=== PATIENT | female | born 1985 | race Caucasian/White ===

== ENCOUNTER 2017-09-21 21:30 | Inpatient (IN) | payer OTHER ==
[2017-09-21] MEDS: ELECTROLYTE-148 SOLN 1,000 ML IV SCH (22:00)
[2017-09-21] MEDS: CITRIC ACID/SODIUM CITRATE 30 ML UNIT-DOSE CUP PO ONE (22:11)
[2017-09-21] MEDS ORDERED: morphine SULFATE/Preservative Free 0.5 MG/ML (1cc Syringe) EP ONE (22:38)
[2017-09-21] MEDS ORDERED: ONDANSETRON 4 MG/2 ML VIAL IVPUSH PRN (22:38)
[2017-09-21] MEDS ORDERED: IBUPROFEN 800 MG/8 ML IJ IVPB PRN (22:39)
[2017-09-21 22:46] LABS: BASO % 0.3 % (0-2.0); EOS % 0.6 % (0-4.5); HEMOGLOBIN 11.6 GM/dL (10.7-15.3); LYMPH % 11.4 % (8-40); MCH 28.8 pg (25.7-33.7); MEAN CELL VOLUME 87.3 fl (80-96); MEAN PLT VOLUME 10.7 fl (7.5-11.1); MONO % 4.7 % (3.8-10.2); PLATELET COUNT 272 K/MM3 (134-434); RBC 4.01 M/mm3 (3.60-5.2); RDW 14.3 % (11.6-15.6); WHITE BLOOD COUNT 12.3 K/mm3 (4.0-10.0)
[2017-09-21] MEDS ORDERED: ceFAZolin SODIUM 1 GM VIAL ONE (22:47)
[2017-09-21 23:11] LABS: INR 0.95 (0.82-1.09); PROTHROMBIN TIME (PATIENT) 10.7 SEC (9.98-11.88)
[2017-09-21] MEDS ORDERED: OXYTOCIN 10 UNITS/ML VIAL ONE ×2 (23:11→23:17)
[2017-09-21 23:13] LABS: ACTIVATED PTT 26.8 SECONDS (26.9-34.4)
[2017-09-21 23:26] LABS: BLOOD UREA NITROGEN 10 mg/dL (7-18); CREATININE 0.9 mg/dL (0.55-1.02); GLUCOSE,RANDOM 85 mg/dL (74-106); SODIUM 139 mmol/L (136-145)
[2017-09-21 23:27] LABS: ANION GAP 13 (8-16); CALCIUM 8.8 mg/dL (8.5-10.1); CHLORIDE 103 mmol/L (98-107); CO2 23 mmol/L (21-32)
--- NOTE | 2017-09-21 23:57 | HP ---
Past Medical History - Admission Chief Complaint: Labor pain History of Present Illness: 32 yo @ 40 weeks gestation, admitted for labor pain. She had 2 prior in [facility]. record available from [facility]. History Source: Patient Limitations to Obtaining History: No Limitations - Past Medical History ...: 3 ...Para: 2 ...EDC by Dyllan: 09/18/17 - Past Surgical History Past Surgical History: Yes: Hx Myomectomy: No Hx Transabdominal Cerclage: No - Smoking History Have you smoked in the past 12 months: No - Alcohol/Substance Use Hx Alcohol Use: No - Social History History of Recent Travel: Yes Home Medications - Allergies Allergies/Adverse Reactions: Allergies Allergy/AdvReac Type Severity Reaction Status Date / Time No Known Allergies Allergy Verified 09/21/17 23:17 - Home Medications Home Medications: Ambulatory Orders Vitamins (Sjr) - 1 tab PO DAILY 09/21/17 Family Disease History - Family Disease History Family History: Unremarkable Review of Systems - Review of Systems Constitutional: reports: No Symptoms Eyes: reports: No Symptoms HENT: reports: No Symptoms Neck: reports: No Symptoms Cardiovascular: reports: No Symptoms Respiratory: reports: No Symptoms Gastrointestinal: reports: No Symptoms Genitourinary: reports: Pain Breasts: reports: No Symptoms Reported Musculoskeletal: reports: No Symptoms Integumentary: reports: No Symptoms Neurological: reports: No Symptoms Endocrine: reports: No Symptoms Hematology/Lymphatic: reports: No Symptoms Psychiatric: reports: No Symptoms Pain Intensity: 7 Physical Exam - Maternity Constitutional: Yes: Well Nourished Eyes: Yes: Conjunctiva Clear HENT: Yes: Atraumatic Neck: Yes: Supple Cardiovascular: Yes: Regular Rate and Rhythm Lungs: Clear to auscultation - Abdominal Exam/OB Number of Fetuses: Single Presentation: Vertex - Vaginal Exam/OB Vaginal Bleediing: No Dilatation (cm): 3 Amniotic Membrane Status: Intact Presentation: Vertex/Position - Physical Exam Psychiatric: Yes: Alert - Labs Lab Results: CBC, BMP 09/21/17 22:15 09/21/17 22:15 Problem List - Problems (1) Pain during labor Code(s): O99.89 - OTH DISEASES AND CONDITIONS COMPL PREG/CHLDBRTH; R52 - PAIN, UNSPECIFIED (2) Previous section complicating , antepartum condition or complication Code(s): O34.219 - MATERNAL CARE FOR UNSP TYPE SCAR FROM PREVIOUS DEL Assessment/Plan Previous in labor Pre op for repeat Consent signed Anesthesia to see patient
--- NOTE | 2017-09-22 00:01 | OP ---
Operative Note - Note: Operative Date: 09/21/17 Pre-Operative Diagnosis: Previous in labor Operation: Repeat Low Transverse Findings: Light meconium Baby boy in LOT position Surgeon: Christi Rhoades Project Geophysicist: Sourav Campbell Anesthesia: Spinal Specimens Removed: Placenta Estimated Blood Loss (mls): 500
[2017-09-22 01:28] VITALS: BMI 41.0
[2017-09-22] MEDS ORDERED: OXYTOCIN 20 UNITS in 0.9% NS 20 UNIT/1,000 ML INFUS.BAG IV ONE (01:36)
[2017-09-22] MEDS ORDERED: METHYLERGONOVINE MALEATE 0.2 MG/1 ML AMP IM PRN (02:00)
[2017-09-22] MEDS ORDERED: IBUPROFEN 800 MG/8 ML IJ IVPB PRN (02:00)
[2017-09-22] MEDS ORDERED: oxyCODONE HCL 5 MG TABLET PO PRN (02:00)
[2017-09-22] MEDS ORDERED: OXYTOCIN 20 UNITS in 0.9% NS 20 UNIT/1,000 ML INFUS.BAG IV SCH (02:00)
[2017-09-22] MEDS ORDERED: DIPHTH,PERTUSS(ACELL),TET 0.5 ML DISP.SYRIN IM ONE (02:31)
[2017-09-22] MEDS ORDERED: TUBERCULIN PPD 5 TU/0.1ML SYRINGE (IN PATIENT USE ONLY) ID ONE (10:00)
[2017-09-22] MEDS: FERROUS SO4 325 MG TABLET (FP) PO SCH ×2 (10:00→22:00)
[2017-09-22] MEDS: PRENATAL VITAMINS W/ FOLIC ACID TABLET (FP) PO SCH (10:00)
--- NOTE | 2017-09-22 10:35 | PN ---
Progress Note, Physician Chief Complaint: Pt. not yet ambulating and rogers still in place, excellent pain control. No anesthesia complaints. - Current Medication List Current Medications: Active Medications Bisacodyl (Dulcolax Suppository -) 10 mg RC PRN PRN PRN Reason: CONSTIPATION Diphenhydramine HCl (Benadryl Injection -) 25 mg IVPUSH Q4H PRN PRN Reason: Pruritis Diphtheria/Tetanus/Acell Pertussis (Boostrix -) 0.5 ml IM .ONCE ONE Stop: 09/23/17 10:01 Ferrous Sulfate (Feosol -) 325 mg PO BID [facility] Parenteral Electrolytes (Plasma-Lyte 148 -) 1,000 mls @ 125 mls/hr IV ASDIR [facility] Last Admin: 09/21/17 22:00 Dose: 125 mls/hr Oxytocin/Sodium Chloride (Normal Saline+20 Units Oxytocin -) 20 unit in 1,000 mls @ 125 mls/hr IV ASDIR [facility] Last Admin: 09/21/17 23:13 Dose: 125 mls/hr Ibuprofen (Motrin -) 600 mg PO Q4H PRN PRN Reason: PAIN Ibuprofen (Caldolor Injection -) 800 mg IVPB Q8H PRN PRN Reason: PAIN OR FEVER Influenza Virus Vaccine Quadrival (Flulaval Quad [id number]) 60 mcg IM .ONCE ONE Stop: 09/23/17 10:01 Methylergonovine Maleate (Methergine Injection -) 0.2 mg IM Q4H PRN PRN Reason: Excessive Bleeding (L&D) Last Admin: 09/22/17 05:04 Dose: 0.2 mg Ondansetron HCl (Zofran Injection) 4 mg IVPUSH Q4H PRN PRN Reason: NAUSEA Oxycodone HCl (Roxicodone -) 5 mg PO Q4H PRN PRN Reason: PAIN LEVEL 1-5 Multivit/Folic Acid/Iron ( Vitamins (Sjr) -) 1 tab PO DAILY [facility] Simethicone (Mylicon -) 80 mg PO Q4H PRN PRN Reason: GAS - Objective Vital Signs: Vital Signs Temperature 98.4 F 09/22/17 09:33 Pulse Rate 90 09/22/17 09:33 Respiratory Rate 20 09/22/17 09:43 Blood Pressure 109/61 09/22/17 09:33 O2 Sat by Pulse Oximetry (%) 100 09/22/17 03:59 Constitutional: Yes: Well Nourished, No Distress, Calm Musculoskeletal: Yes: WNL Neurological: Yes: WNL, Alert, Oriented ...Motor Strength: WNL Labs: CBC, BMP 09/21/17 22:15 09/21/17 22:15 INR, PTT INR 0.95 (0.82-1.09) 09/21/17 22:15 Assessment/Plan POD#1 s/p under spinal with DM. Doing well. D/C from anesthesia care.
[2017-09-22] MEDS ORDERED: ACETAMINOPHEN 325 MG TABLET (FP) ONE (14:17)
[2017-09-22] MEDS: SIMETHICONE 80 MG TAB.CHEW (FP) PO PRN ×2 (14:25→19:54)
[2017-09-22] MEDS: IBUPROFEN 600 MG TABLET (FP) PO PRN ×2 (14:25→19:54)
[2017-09-22] MEDS: CITRIC ACID/SODIUM CITRATE 30 ML UNIT-DOSE CUP PO ONE (19:45)
[2017-09-22] MEDS: ACETAMINOPHEN 325 MG TABLET (FP) PO PRN (19:55)
[2017-09-22] MEDS: ELECTROLYTE-148 SOLN 1,000 ML IV SCH (23:54)
[2017-09-23] MEDS ORDERED: BISACODYL 10 MG SUPP.RECT RC PRN (02:00)
[2017-09-23] MEDS: IBUPROFEN 600 MG TABLET (FP) PO PRN ×2 (03:38→18:31)
[2017-09-23] MEDS: ACETAMINOPHEN 325 MG TABLET (FP) PO PRN ×2 (03:38→18:32)
[2017-09-23] MEDS: SIMETHICONE 80 MG TAB.CHEW (FP) PO PRN ×2 (03:38→18:33)
[2017-09-23 07:19] LABS: BASO % 0.5 % (0-2.0); EOS % 0.8 % (0-4.5); HEMATOCRIT 30.1 % (32.4-45.2); HEMOGLOBIN 9.8 GM/dL (10.7-15.3); LYMPH % 13.7 % (8-40); MCH 28.4 pg (25.7-33.7); MCHC 32.5 g/dl (32.0-36.0); MEAN CELL VOLUME 87.4 fl (80-96); MEAN PLT VOLUME 9.6 fl (7.5-11.1); MONO % 4.8 % (3.8-10.2); NEUT % 80.2 % (42.8-82.8); PLATELET COUNT 213 K/MM3 (134-434); RBC 3.44 M/mm3 (3.60-5.2); RDW 14.5 % (11.6-15.6); WHITE BLOOD COUNT 12.2 K/mm3 (4.0-10.0)
[2017-09-23] MEDS ORDERED: DIPHTH,PERTUSS(ACELL),TET 0.5 ML DISP.SYRIN IM ONE (10:00)
[2017-09-23] MEDS ORDERED: FLU VACC QS2017-18 36MOS UP/PF 60 MCG/0.5 ML SYRINGE IM ONE (10:00)
[2017-09-23] MEDS: PRENATAL VITAMINS W/ FOLIC ACID TABLET (FP) PO SCH (11:06)
[2017-09-23] MEDS: FERROUS SO4 325 MG TABLET (FP) PO SCH ×2 (11:06→22:30)
--- NOTE | 2017-09-23 22:52 | PN ---
Progress Note (short form) - Note Progress Note: pod 1 doing well, ambulating CBC, BMP 09/23/17 06:45 09/21/17 22:15 Last Vital Signs Temp Pulse Resp BP Pulse Ox 98.4 F 84 20 133/84 100 09/23/17 21:50 09/23/17 21:50 09/23/17 21:50 09/23/17 21:50 09/22/17 03:59 abdomen soft, no distension, no cva uterus firm lochia mild no calf tenderness plan ambulate advance diet
--- NOTE | 2017-09-24 08:55 | PN ---
Progress Note (short form) - Note Progress Note: pod 2 ,has mild cramps CBC, BMP 09/23/17 06:45 09/21/17 22:15 Last Vital Signs Temp Pulse Resp BP Pulse Ox 98.4 F 84 20 133/84 100 09/23/17 21:50 09/23/17 21:50 09/23/17 21:50 09/23/17 21:50 09/22/17 03:59 abdomen soft, no distension, no cva uterus firm, non tender no calf tenderness plan advance diet , cbc in am ambulate
[2017-09-24] MEDS: PRENATAL VITAMINS W/ FOLIC ACID TABLET (FP) PO SCH (09:37)
[2017-09-24] MEDS: FERROUS SO4 325 MG TABLET (FP) PO SCH ×2 (09:37→22:30)
[2017-09-24] MEDS: ACETAMINOPHEN 325 MG TABLET (FP) PO PRN (20:35)
[2017-09-24] MEDS: IBUPROFEN 600 MG TABLET (FP) PO PRN (20:35)
[2017-09-24] MEDS: SIMETHICONE 80 MG TAB.CHEW (FP) PO PRN (20:35)
[2017-09-25 07:55] VITALS: BP 112/69; PULSE 86; TEMP 97.5
--- NOTE | 2017-09-25 08:21 | DS ---
Physical Exam-AGRONOMY [employer]NS[employer]IP Vital Signs: Vital Signs Temperature 97.5 F L 09/25/17 07:52 Pulse Rate 86 09/25/17 07:52 Respiratory Rate 20 09/25/17 07:52 Blood Pressure 112/69 09/25/17 07:52 O2 Sat by Pulse Oximetry (%) 100 09/22/17 03:59 Constitutional: Yes: Well Nourished, No Distress Eyes: Yes: WNL, Conjunctiva Clear HENT: Yes: WNL, Atraumatic, Normocephalic Neck: Yes: WNL, Supple Cardiovascular: Yes: WNL, Regular Rate and Rhythm Respiratory: Yes: WNL, Regular Gastrointestinal: Yes: WNL, Normal Bowel Sounds ...Rectal Exam: Yes: WNL Renal/: Yes: WNL Pelvis: Yes: WNL External Genitalia: Yes: Normal Internal Exam Deferred: Yes Vaginal Exam: Yes: Normal Adnexa: Normal: Left, Right ....Post : Yes: Uterus firm, Uterus non-tender, Moderate lochia serosa Breast(s): Yes: WNL Musculoskeletal: Yes: WNL Extremities: Yes: WNL Edema: No Integumentary: Yes: WNL Wound/Incision: Yes: Clean/Dry, Steri Strips Neurological: Yes: WNL, Alert, Oriented ...Motor Strength: WNL Psychiatric: Yes: Alert, Oriented Labs: CBC, BMP 09/23/17 06:45 09/21/17 22:15 Delivery - Delivery Type of Anesthesia: Spinal Episiotomy/Laceration: None EBL (cc): 500 Delivery, Single - Stages of Labor Date 1st Stage Initiatied: 09/21/17 Time 1st Stage Initiated: 18:00 Date of Delivery: 09/21/17 Time of Delivery: 23:12 Time Placenta Delivered: 23:13 - Condition of Infant Fitness Center Attendant/Street Cleaning Equipment Operator Present: No Infant Gender: Male Weight: 7 lb 8 oz Position: Left, OT Total Hours ROM (Hrs/Mins): 2min - 1 Minute Total Score: 9 5 Minutes Total Score: 9 - Feeding Plan Initial Plan: Elected not to breastfeed exclusively throughout hospitalization Discharge Summary Reason For Visit: Current Active Problems Pain during labor (Acute) Previous section complicating , antepartum condition or complication (Acute) Hospital Course: uncomplicated Condition: Good - Instructions Diet, Activity, Other Instructions: Return to MD office in 1-2 weeks, call office for an appointment. Referrals: Christi Rhoades MD [Family Provider] - Disposition: HOME - Home Medications Comprehensive Discharge Medication List: Ambulatory Orders Vitamins (Sjr) - 1 tab PO DAILY 09/21/17 Flovent Hfa 2 puff IH PRN PRN 09/22/17 Proventil HFA Inhaler - 2 puff PO PRN PRN 09/22/17
[2017-09-25 08:49] LABS: BASO % 0.6 % (0-2.0); EOS % 2.2 % (0-4.5); HEMATOCRIT 29.7 % (32.4-45.2); HEMOGLOBIN 9.8 GM/dL (10.7-15.3); MCH 29.2 pg (25.7-33.7); MCHC 33.2 g/dl (32.0-36.0); MEAN CELL VOLUME 87.9 fl (80-96); MEAN PLT VOLUME 9.1 fl (7.5-11.1); MONO % 5.7 % (3.8-10.2); NEUT % 74.5 % (42.8-82.8); PLATELET COUNT 224 K/MM3 (134-434); RBC 3.37 M/mm3 (3.60-5.2); RDW 14.7 % (11.6-15.6); WHITE BLOOD COUNT 8.5 K/mm3 (4.0-10.0)
[2017-09-25] MEDS: PRENATAL VITAMINS W/ FOLIC ACID TABLET (FP) PO SCH (09:03)
[2017-09-25] MEDS: FERROUS SO4 325 MG TABLET (FP) PO SCH (09:03)
[2017-09-25] MEDS: IBUPROFEN 600 MG TABLET (FP) PO PRN (09:05)
[2017-09-25] MEDS: SIMETHICONE 80 MG TAB.CHEW (FP) PO PRN (09:05)
[2017-09-25] MEDS: ACETAMINOPHEN 325 MG TABLET (FP) PO PRN (09:06)
--- NOTE | 2017-09-27 15:52 | PATH ---
Surgical Pathology Report Patient Name: MARTY MOODY Med. Rec. 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 Specimen(s) Received PLACENTA Clinical History , 40.3 weeks gestation Final Diagnosis PLACENTA, SECTION: 419 g THIRD TRIMESTER PLACENTA WITH TRIVASCULAR UMBILICAL CORD AND PLACENTAL MEMBRANES WITH SCATTERED MECONIUM LADEN MACROPHAGES. Electronically Signed Dimple Garcia M.D. Gross Description The specimen is received fresh labeled placenta and is a 419 gram, 17.0 x 16.5 x 2.4 cm. placenta with attached membranes and umbilical cord. The attached membranes are blackmon green, meconium stained, translucent with focal opacities and insert marginally. The umbilical cord measures 33 cm. in length and averages 1 cm. in diameter. The cord inserts at the margin. No true knots or strictures are identified. Cut surface of the umbilical cord reveals 3 vessels. The surface is bryant green, meconium stained with minimal fibrin deposition and appropriate caliber vessels. The maternal surface is red-brown with focal defects. Sectioning reveals red-brown, spongy parenchyma. No lesions are identified. Warehouse Technician sections are submitted in three cassettes as follows: 1- membrane rolls and umbilical cord; 2-3- full thickness sections of placenta. /09/26/2017 [facility]09/26/2017
== END 2017-09-25 10:45 | disposition home or self-care (01) | DRG 540 ==
LOC: JDEL 21:30 → JLDR 21:50 → EDBD 21:50 → J3W 09-22 02:06
PROVIDERS: ADMIT Obstetrics & Gynecology; ATTEND Obstetrics & Gynecology
PROC: 10D00Z1 Extraction of Products of Conception, Low, Open Approach (ICD-10-PCS; principal; 2017-09-21)
DX: O34.211 Maternal care for low transverse scar from previous cesarean delivery (principal); O48.0 Post-term pregnancy; O77.0 Labor and delivery complicated by meconium in amniotic fluid; Z37.0 Single live birth; Z3A.40 40 weeks gestation of pregnancy
CPT/HCPCS: 36415; 80048; 85025; 85610; 85730; 86593; 86850; 86900; 86901; 88307-TC; 90686; 90715